=== PATIENT | female | born 1965 | race American Indian/Alaskan Native ===

== ENCOUNTER 2020-10-21 15:57 | Emergency (ER) | payer BC ==
--- NOTE | 2020-10-21 16:36 | Event Note ---
ED Screening Note Date of service: 10/21/20 Time: 16:21 ED Screening Note: 55-year-old -[place] female presents to the emergency room complaining of right lower leg swelling and pain behind the knee. Started yesterday. Patient states that she did go to an urgent care states that the pain x-ray and recommend a ultrasound of the leg. This initial assessment/diagnostic orders/clinical plan/treatment(s) is/are subject to change based on patients health status, clinical progression and re- assessment by fellow clinical providers in the ED. Further treatment and workup at subsequent clinical providers discretion. Patient/guardian urged not to elope from the ED as their condition may be serious if not clinically assessed and managed. Initial orders include:
--- NOTE | 2020-10-21 17:22 | XRay Report ---
CHEST 2 VIEWS INDICATION / CLINICAL INFORMATION: Chest Pain. COMPARISON: None available. FINDINGS: SUPPORT DEVICES: None. HEART / MEDIASTINUM: No significant abnormality. LUNGS / PLEURA: No significant pulmonary or pleural abnormality. No pneumothorax. ADDITIONAL FINDINGS: No significant additional findings. IMPRESSION: No acute cardiopulmonary abnormality. Signer Name: Rogers Almaraz MD Signed: 10/21/2020 5:18 PM Workstation Name: [id number]
--- NOTE | 2020-10-21 17:40 | Vascular Lab Report ---
DUPLEX DOPPLER LOWER EXTREMITY VEINS, RIGHT INDICATION / CLINICAL INFORMATION: Right leg swelling and pain. TECHNIQUE: Duplex doppler imaging was performed through the veins of the right lower extremity using venous comp ression and other maneuvers. COMPARISON: None available. FINDINGS: RIGHT COMMON FEMORAL VEIN: Negative. RIGHT FEMORAL VEIN: Negative. RIGHT POPLITEAL VEIN: Negative. RIGHT CALF VEINS: Negative. ADDITIONAL FINDINGS: There is a 6.6 x 3.1 cm slightly complex fluid collection within the popliteal f saravanan extending to the posterior calf. IMPRESSION: 1. No sonographic evidence for DVT in the right lower extremity. 2. Complex fluid collection within the popliteal fossa likely represents a ruptured popliteal cyst. Signer Name: Rogers Almaraz MD Signed: 10/21/2020 5:35 PM Workstation Name: [id number]
[2020-10-21] MEDS ORDERED: ONDANSETRON 4 MG ODT TAB PO ONE (19:54)
[2020-10-21] MEDS ORDERED: IBUPROFEN 600 MG TAB PO ONE (19:54)
[2020-10-21] MEDS ORDERED: HYDROcodone/ACETAMINOPHEN 5-325 MG TAB PO ONE (19:54)
--- NOTE | 2020-10-21 20:20 | Emergency Department Report ---
ED Extremity Problem HPI - General Chief complaint: Extremity Problem,Nontraumatic Stated complaint: CHEST PAIN/BP HIGH/LEG PAIN Source: patient Mode of arrival: Ambulatory Limitations: No Limitations - History of Present Illness Initial comments: Patient is a 55-year-old -[place] female with no past medical history who presents to the ED with complaint of acute onset persistent severe nontraumatic right knee pain for the last 2 days. Patient states that the pain initially was mild but about 24 hours ago the pain got worse in severity after she felt a pop sound in the right knee joint. Patient states that the pain has been worsening especially with any active range of motion or weightbearing. Patient denies fall, dizziness, syncope, chest pain, shortness of breath, nausea and vomiting, numbness and tingling or weakness of right leg, hip pain or low back pain, fever or chills or traumatic injury and heavy lifting. MD Complaint: extremity pain (right knee pain, swelling), extremity swelling (right knee ), joint swelling (right knee) -: Sudden, days(s) (2) Location: right, lower extremity (knee), knee (right knee) History of Same: No -: Yes arthralgia (right knee pain) Radiation: none Severity scale (0 -10): 9 Quality: aching, sharp, constant Consistency: constant Improves with: nothing Worsens with: weight bearing, walking, palpation Associated Symptoms: denies other symptoms, arthralgias. denies: chest pain, shortness of breath, fever, myalgias, rash, other - Related Data Previous Rx's Medication Instructions Recorded Last Taken Type Ibuprofen [Motrin] 800 mg PO Q8HR PRN #30 tablet 10/21/20 Unknown Rx methOCARBAMOL [Robaxin TAB] 750 mg PO BID PRN #24 tab 10/21/20 Unknown Rx traMADoL [Ultram] 50 mg PO Q6HR PRN #10 tablet 10/21/20 Unknown Rx ED Review of Systems ROS: Stated complaint: CHEST PAIN/BP HIGH/LEG PAIN Other details as noted in HPI Constitutional: denies: chills, fever Eyes: denies: eye pain, eye discharge, vision change ENT: denies: ear pain, throat pain Respiratory: denies: cough, shortness of breath, wheezing Cardiovascular: denies: chest pain, palpitations Endocrine: no symptoms reported Gastrointestinal: denies: abdominal pain, nausea, diarrhea Genitourinary: denies: urgency, dysuria, discharge Musculoskeletal: joint swelling (Right knee response was), arthralgia (Right knee pain). denies: back pain Skin: denies: rash, lesions Neurological: denies: headache, weakness, paresthesias Psychiatric: denies: anxiety, depression Hematological/Lymphatic: denies: easy bleeding, easy bruising ED Past Medical Hx - Past Medical History Previous Medical History?: No - Surgical History Past Surgical History?: No - Medications Home Medications: Home Medications Medication Instructions Recorded Confirmed Last Taken Type Ibuprofen [Motrin] 800 mg PO Q8HR PRN #30 tablet 10/21/20 Unknown Rx methOCARBAMOL [Robaxin TAB] 750 mg PO BID PRN #24 tab 10/21/20 Unknown Rx traMADoL [Ultram] 50 mg PO Q6HR PRN #10 tablet 10/21/20 Unknown Rx ED Physical Exam - General Limitations: No Limitations General appearance: alert, in no apparent distress - Head Head exam: Present: atraumatic, normocephalic, normal inspection - Eye Eye exam: Present: normal appearance, PERRL, EOMI Pupils: Present: normal accommodation - ENT ENT exam: Present: normal exam, normal orophraynx, mucous membranes moist, TM's normal bilaterally, normal external ear exam - Neck Neck exam: Present: normal inspection, full ROM. Absent: tenderness, lymphadenopathy - Respiratory Respiratory exam: Present: normal lung sounds bilaterally. Absent: respiratory distress, wheezes, rales, rhonchi, chest wall tenderness, accessory muscle use, decreased breath sounds, prolonged expiratory - Cardiovascular Cardiovascular Exam: Present: regular rate, normal rhythm, normal heart sounds. Absent: systolic murmur, diastolic murmur, rubs, gallop - GI/Abdominal GI/Abdominal exam: Present: soft, normal bowel sounds. Absent: distended, tenderness, guarding, rebound, hyperactive bowel sounds, hypoactive bowel sounds, organomegaly, mass, bruit - Extremities Exam Extremities exam: Present: normal inspection, tenderness (Palpable right knee tenderness with limited range of motion due to pain), normal capillary refill, joint swelling (Mild right knee swelling). Absent: full ROM (Mild limited range of motion due to pain of right knee) - Back Exam Back exam: Present: normal inspection, full ROM. Absent: tenderness, CVA tenderness (R), CVA tenderness (L), muscle spasm, paraspinal tenderness, vertebral tenderness - Neurological Exam Neurological exam: Present: alert, oriented X3, CN II-XII intact, normal gait, reflexes normal - Psychiatric Psychiatric exam: Present: normal affect, normal mood - Skin Skin exam: Present: warm, dry, intact, normal color. Absent: rash ED Course Vital Signs 10/21/20 16:17 Temperature 98 F Pulse Rate 71 Respiratory 16 Rate Blood Pressure 157/68 [Right] O2 Sat by Pulse 96 Oximetry ED Medical Decision Making - Radiology Data Radiology results: report reviewed, image reviewed Findings [facility] [address] [place] [address] Vascular Lab Report Signed Patient: LAUREN LAYNE MR#: [id number] : 1965 Acct:[id number] Age/Sex: 55 / F ADM Date: 10/21/20 Loc: ED Attending Dr: Ordering Physician: PAULINE POLO Date of Service: 10/21/20 Procedure(s): VL venous duplex LE RT Accession Number(s): [id number] cc: PAULINE POLO DUPLEX DOPPLER LOWER EXTREMITY VEINS, RIGHT INDICATION / CLINICAL INFORMATION: Right leg swelling and pain. TECHNIQUE: Duplex doppler imaging was performed through the veins of the right lower extremity using venous compression and other maneuvers. COMPARISON: None available. FINDINGS: RIGHT COMMON FEMORAL VEIN: Negative. RIGHT FEMORAL VEIN: Negative. RIGHT POPLITEAL VEIN: Negative. RIGHT CALF VEINS: Negative. ADDITIONAL FINDINGS: There is a 6.6 x 3.1 cm slightly complex fluid collection within the popliteal fossa extending to the posterior calf. IMPRESSION: 1. No sonographic evidence for DVT in the right lower extremity. 2. Complex fluid collection within the popliteal fossa likely represents a ruptured popliteal cyst. Signer Name: Santiago Almaraz MD Signed: 10/21/2020 5:35 PM Workstation Name: [id number] Transcribed By: PANDA Dictated By: SANTIAGO ALMARAZ Electronically Authenticated By: SANTIAGO ALMARAZ Signed Date/Time: 10/21/201734 DD/ 33 TD/TT: Findings [facility] [address] [place] [address] XRay Report Signed Patient: LAUREN LAYNE MR#: [id number] : 1965 Acct:[id number] Age/Sex: 55 / F ADM Date: 10/21/20 Loc: ED Attending Dr: Ordering Physician: PAULINE POLO Date of Service: 10/21/20 Procedure(s): XR chest routine 2V Accession Number(s): [id number] cc: PAULINE POLO Fluoro Time In Minutes: CHEST 2 VIEWS INDICATION / CLINICAL INFORMATION: Chest Pain. COMPARISON: None available. FINDINGS: SUPPORT DEVICES: None. HEART / MEDIASTINUM: No significant abnormality. LUNGS / PLEURA: No significant pulmonary or pleural abnormality. No pneumothorax. ADDITIONAL FINDINGS: No significant additional findings. IMPRESSION: No acute cardiopulmonary abnormality. Signer Name: Santiago Almaraz MD Signed: 10/21/2020 5:18 PM Workstation Name: [id number] Transcribed By: SS Dictated By: SANTIAGO ALMARAZ Electronically Authenticated By: SANTIAGO ALMARAZ Signed Date/Time: 10/21/201717 DD/ 16 TD/TT: - Medical Decision Making This is a 55-year-old -[place] female with no past medical history who presents to the ED with complaint of acute onset persistent severe nontraumatic right knee pain for the last 2 days. Patient states that the pain initially was mild but about 24 hours ago the pain got worse in severity after she felt a pop sound in the right knee joint. Patient states that the pain has been worsening especially with any active range of motion or weightbearing. In the ED, patient is alert and oriented x3 and is not in distress. Patient was treated for pain in the ED and right leg Doppler ultrasound showed no sonographic evidence of DVT but showed a complex fluid collection within the popliteal fossa which likely represents a ruptured popliteal cyst. Chest x-ray shows no acute cardiopulmonary abnormalities. On reevaluation, patient's pain is well controlled medications. Right knee was splinted with Frankie wrap and the patient was discharged home on pain medications and advised to follow-up with her primary care physician in 7 to 10 days for reevaluation or return to the ED immediately if symptoms get worse. - Differential Diagnosis DVT; popliteal cyst; right knee sprain; muscle strain;Osteoarthritis Critical care attestation.: If time is entered above; I have spent that time in minutes in the direct care of this critically ill patient, excluding procedure time. ED Disposition Clinical Impression: Rupture of popliteal cyst of right knee region Sprain of right knee Qualifiers: Encounter type: initial encounter Involved ligament of knee: unspecified ligament Qualified Code(s): S83.91XA - Sprain of unspecified site of right knee, initial encounter Muscle strain of right knee Qualifiers: Encounter type: initial encounter Qualified Code(s): S86.911A - Strain of unspecified muscle(s) and tendon(s) at lower leg level, right leg, initial encounter Disposition: DC- TO HOME OR SELFCARE Is pt being admited?: No Does the pt Need Aspirin: No Condition: Stable Instructions: Muscle Strain, [id number], Knee Sprain, Adult, [id number] Additional Instructions: The x-ray of your chest shows no acute cardiopulmonary abnormalities. Right leg Doppler ultrasound showed no evidence of DVT, but a complex fluid collection within the popliteal fossa which likely represents a ruptured popliteal cyst. Therefore take medications as needed for pain, drink plenty fluids and follow-up with your primary care physician in 7 to 10 days for reevaluation or return to the ED immediately if symptoms get worse. Prescriptions: Ibuprofen [Motrin] 800 mg PO Q8HR PRN #30 tablet PRN Reason: Pain , Severe (7-10) methOCARBAMOL [Robaxin TAB] 750 mg PO BID PRN #24 tab PRN Reason: Muscle Spasm traMADoL [Ultram] 50 mg PO Q6HR PRN #10 tablet PRN Reason: Pain Referrals: [facility] [Provider Group] - 7-10 days Time of Disposition: 20:40 Print Language: GAMBIAN
[2020-10-21 21:51] VITALS: BP 124/78
== END 2020-10-21 20:55 | disposition home or self-care (01) ==
LOC: ED 15:57
DX: S83.91XA Sprain of unspecified site of right knee, initial encounter (principal); M66.0 Rupture of popliteal cyst; Z79.1 Long term (current) use of non-steroidal anti-inflammatories (NSAID); Z79.899 Other long term (current) drug therapy; X58.XXXA Exposure to other specified factors, initial encounter; Y93.89 Activity, other specified; Y92.89 Other specified places as the place of occurrence of the external cause; Y99.8 Other external cause status
CPT/HCPCS: 71046; Q0162